=== PATIENT | female | born 1995 ===

== ENCOUNTER 2018-05-11 01:57 | Emergency (ER) | payer OTHER ==
[2018-05-11 02:06] VITALS: BP 122/74; PULSE 66; TEMP 98.3; O2SAT 99
--- NOTE | 2018-05-11 02:38 | C.PDOC ---
History Of Present Illness 23 year old female presents to the ED for evaluation after sustaining a dog bite to her right 5th finger earlier today. Patient states the dog is patient's mother's pet, who has tendencies to be aggressive at times. Patient states the dog is vaccination and that she is up-to-date with her immunizations. Patient denies fever, chills. Time Seen by Provider: 05/11/18 02:05 Chief Complaint (Nursing): Abnormal Skin Integrity History Per: Patient History/Exam Limitations: no limitations Onset/Duration Of Symptoms: Hrs Current Symptoms Are (Timing): Still Present Location Of Injury: Right: Hand (5th finger) Quality Of Symptoms: Painful Additional History Per: Patient - Animal Bite Description Of The Animal: Family Pet Reports Animal Appears: Well Reports Animal's Immunization Status: UTD Past Medical History Reviewed: Historical Data, Nursing Documentation, Vital Signs Vital Signs: Last Vital Signs Temp 98.3 F 05/11/18 01:59 Pulse 66 05/11/18 01:59 Resp 22 05/11/18 01:59 BP 122/74 05/11/18 01:59 Pulse Ox 99 05/11/18 01:59 - Medical History PMH: No Chronic Diseases Surgical History: No Surg Hx Family History: States: Unknown Family Hx - Social History Hx Alcohol Use: No Hx Substance Use: No - Immunization History Hx Tetanus Toxoid Vaccination: No (cannot recall) Hx Influenza Vaccination: No Hx Pneumococcal Vaccination: No Review Of Systems Constitutional: Negative for: Fever, Chills, Weakness Skin: Positive for: Other (dog bite to right 5th finger ). Negative for: Rash, Jaundice, Bruising Neurological: Negative for: Weakness, Numbness, Dizziness Physical Exam - Physical Exam Appears: Non-toxic, No Acute Distress Skin: Normal Color, Warm, No Rash, Other (1.5cm laceration to fat pad of distal right 5th finger. no active bleeding ) Extremity: Normal ROM, Capillary Refill (less than 2 seconds ), No Deformity Pulses: Left Radial: Normal, Right Radial: Normal Neurological/Psych: Oriented x3, Normal Cranial Nerves (grossly intact ), Normal Sensation ED Course And Treatment O2 Sat by Pulse Oximetry: 99 (on RA) Pulse Ox Interpretation: Normal Laceration - Laceration Repair right 5th digit Wound Length (In cm): 1.5 Wound Examination: Irrigated With Saline, No FB With Wound Exploration, No Tendon Injury With Wound Exploration Wound Closure: Suture (six ) Suture Technique And Material Used: Nylon (4-0) Wound Complexity: Simple Medical Decision Making Medical Decision Making: Progress: Augmentin PO administered. Laceration Repair: 1.5cm gaping wound to right 5th digit. Local anesthesia was obtained with lidocaine without epinephrine. Wound irrigated with normal saline and explored. No foreign body seen. Six 4-0 Nylon sutures placed. Patient tolerated well with minimal bleeding. On reassessment, patient is resting comfortably, showing no signs of distress and is stable for discharge. Patient is given wound care instructions and advised to return to the ED for suture removal in 10-12 days. Disposition Counseled Patient/Family Regarding: Diagnosis, Need For Followup, Rx Given - Disposition Disposition: HOME/ ROUTINE Disposition Time: 02:37 Condition: STABLE Additional Instructions: Please return for suture removal in 10-12 days. Prescriptions: Amoxicillin/Potassium Clav [Augmentin 500 mg-125 mg] 1 tab PO BID 3 Days tab Instructions: Laceration Repair With Stitches (DC), Animal Bite (ED) Forms: [employer] (Kittitian), General Discharge Instructions - Clinical Impression Clinical Impression: Dog bite of finger - PA / CHECK WRITER / Resident Statement MD/DO has reviewed & agrees with the documentation as recorded. - Scribe Statement The provider has reviewed the documentation as recorded by the Scribe (Ewelina Ramírez) All medical record entries made by the Scribe were at my direction and personally dictated by me. I have reviewed the chart and agree that the record accurately reflects my personal performance of the history, physical exam, medical decision making, and the department course for this patient. I have also personally directed, reviewed, and agree with the discharge instructions and disposition.
[2018-05-11] MEDS ORDERED: Amoxicillin-Clav 500-125 mg Tab PO STA (02:49)
[2018-05-11] MEDS ORDERED: Amoxicillin-Clav 500-125 mg Tab PO ONE (03:04)
[2018-05-11 03:58] VITALS: RESP 18
== END 2018-05-11 03:25 | disposition home or self-care (01) ==
LOC: C.ER 01:57
DX: S61.256A Open bite of right little finger without damage to nail, initial encounter (principal); W54.0XXA Bitten by dog, initial encounter